=== PATIENT | female | born 1975 | race Caucasian/White ===

== ENCOUNTER 2022-04-04 17:04 | Emergency (ER) | payer MEDICARE, OTHER ==
[~2022-04-04 17:04] MED LIST: KETOROLAC TROME10 MG PO
[2022-04-04 20:00] LABS: BASOPHIL 0.6 % (0-2); EOSINOPHIL 1.6 % (0-5); HCT 35.4 % (37.0-47.0); HGB 11.5 g/dl (12.5-16.0); LYMPHOCYTE 26.3 % (15-48); MCH 30.3 pg (25.0-31.0); MCHC 32.5 g/dL (32.0-36.0); MCV 93.2 fL (78.0-100.0); MONOCYTE 5.7 % (0-12); MPV 9.5 fL (6.0-9.5); NEUTROPHIL 65.4 % (41-80); NRBC 0; PLT 175 K/uL (150-400); RDW 13.2 % (11.5-14.0); WBC 5.1 K/uL (4.0-10.5)
[2022-04-04 20:16] LABS: BUN/CREAT RATIO (CALC) 14.6 RATIO; CREATININE 1.03 mg/dL (0.51-0.95); POTASSIUM 3.7 mmol/L (3.5-5.1)
[2022-04-04 20:43] LABS: CORONAVIRUS 2019 SARS-COV-2 NEGATIVE (NEGATIVE); INFLUENZA A NAA NEGATIVE (NEGATIVE)
[2022-04-04] MEDS ORDERED: NAPROXEN500 MG PO (22:53)
[2022-04-04] MEDS ORDERED: CYCLOBENZAPRINE10 MG PO (22:53)
== END 2022-04-04 23:05 | disposition home or self-care (01) ==
LOC: FER 17:04
PROVIDERS: Nurse Practitioner Family
DX: M43.6 Torticollis (principal); F17.210 Nicotine dependence, cigarettes, uncomplicated; Z88.5 Allergy status to narcotic agent; Z20.822 Contact with and (suspected) exposure to COVID-19
CPT/HCPCS: 36415; 71046; 71275; 80048; 85025; 85379; 96372; J1100; J1885; J7030; Q9967; U0002